=== PATIENT | female | born 1995 | race Caucasian/White ===

== ENCOUNTER 2019-04-23 12:33 | Emergency (ER) | payer OTHER, SELFPAY ==
[2019-04-23 12:36] VITALS: BP 118/66; PULSE 64; RESP 18; TEMP 36.4; O2SAT 98; BMI 19.8
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
[2019-04-23 14:50] VITALS: BP 128/70; PULSE 84; RESP 18; O2SAT 100
[2019-04-23 15:07] VITALS: BP 128/70; PULSE 84; RESP 18; O2SAT 100
== END 2019-04-23 15:08 | disposition home or self-care (01) ==
PROVIDERS: Emergency Provider Emergency Medicine
DX: S20.211A Contusion of right front wall of thorax, initial encounter (principal); S60.221A Contusion of right hand, initial encounter; V89.2XXA Person injured in unspecified motor-vehicle accident, traffic, initial encounter
CPT/HCPCS: 99282